=== PATIENT | female | born 2000 | race African-American/Black ===

== ENCOUNTER 2021-12-10 11:31 | Emergency (ER) | payer OTHER ==
[~2021-12-10] VITALS: Ht 160 cm; Wt 60.6 kg
[2021-12-10] MEDS ORDERED: ONDA4TAB6 PO (11:39)
[2021-12-10 13:43] LABS: BASO % 0.3 % (0.0-1.0); EOS % 0.2 % (0.0-3.0); HEMATOCRIT 38.1 % (36.0-47.0); HEMOGLOBIN 12.9 g/dl (12.0-15.5); LYMPH # 1.8 10^3/uL (1.5-5.0); LYMPH % 31.9 % (24.0-44.0); MEAN CORPUSCULAR HEMOGLOBIN 29.5 pg (27.0-33.0); MEAN CORPUSCULAR HGB CONC 33.9 g/dl (32.0-36.5); MONO # 0.5 10^3/uL (0.0-0.8); MONO % 8.4 % (2.0-8.0); NEUTROPHILS # 3.4 10^3/uL (1.5-8.5); PLATELET COUNT, AUTOMATED 270 10^3/uL (150-450); RED BLOOD COUNT 4.38 10^6/uL (4.00-5.40); WHITE BLOOD COUNT 5.7 10^3/uL (4.0-10.0)
[2021-12-10 14:16] LABS: ALBUMIN 3.8 GM/DL (3.2-5.2); ALT/SGPT 28 U/L (12-78); BILIRUBIN,DIRECT 0.3 MG/DL (0.0-0.2); BILIRUBIN,TOTAL 1.2 MG/DL (0.2-1.0); BLOOD UREA NITROGEN 6 MG/DL (7-18); CALCIUM LEVEL 9.5 MG/DL (8.5-10.1); CARBON DIOXIDE LEVEL 23 MEQ/L (21-32); CHLORIDE LEVEL 103 MEQ/L (98-107); CREATININE FOR GFR 0.57 MG/DL (0.55-1.30); GLOMERULAR FILTRATION RATE > 60.0 (>60); GLUCOSE, FASTING 71 MG/DL (70-100); LIPASE 92 U/L (73-393); SODIUM LEVEL 136 MEQ/L (136-145); TOTAL PROTEIN 7.8 GM/DL (6.4-8.2)
[2021-12-10] MEDS ORDERED: NS 1,000 ML IV ONE (16:00)
[2021-12-10] MEDS ORDERED: METOCLOPRAMIDE INJ 10MG/2ML VIAL (J2765 PER 1) IV ONE (16:00)
[2021-12-10] MEDS ORDERED: REGL10TA6 PO (17:08)
[2021-12-10 17:16] VITALS: BP 114/84
== END 2021-12-10 17:27 | disposition home or self-care (01) ==
LOC: M ED 11:31
DX: O21.9 Vomiting of pregnancy, unspecified (principal)
CPT/HCPCS: 80048; 80076; 83690; 85025; 96361; 96374; 99284; J2765

== ENCOUNTER 2022-03-24 10:33 | Observation (INO) | payer OTHER ==
[~2022-03-24] VITALS: Ht 160 cm; Wt 73.5 kg
[2022-03-24] VITALS (8 sets, daily range): BP systolic 110–140; BP diastolic 60–79
[~2022-03-24 10:33] MED LIST: ONDA4TAB6 PO; REGL10TA6 PO
[2022-03-24 11:43] LABS: HEMATOCRIT 30.3 % (36.0-47.0); HEMOGLOBIN 9.9 g/dl (12.0-15.5); MEAN CORPUSCULAR HEMOGLOBIN 28.7 pg (27.0-33.0); MEAN CORPUSCULAR HGB CONC 32.7 g/dl (32.0-36.5); MEAN CORPUSCULAR VOLUME 87.8 fl (80.0-96.0); PLATELET COUNT, AUTOMATED 250 10^3/uL (150-450); RED BLOOD COUNT 3.45 10^6/uL (4.00-5.40); WHITE BLOOD COUNT 6.5 10^3/uL (4.0-10.0)
[2022-03-24] MEDS ORDERED: UNIS25TA3 PO (12:51)
[2022-03-24] MEDS ORDERED: PRENTAB9 PO (12:51)
[2022-03-24] MEDS ORDERED: VITA100T14 PO (12:51)
[2022-03-24] MEDS ORDERED: ACETAMINOPHEN 325 MG TAB PO ONE (15:45)
[2022-03-24] MEDS ORDERED: diphenhydrAMINE 50MG CAP PO PRN (15:50)
[2022-03-25 04:06] VITALS: BP 109/62
[2022-03-25 07:09] VITALS: BP 105/56
[2022-03-25] MEDS ORDERED: PRENATAL VITAMINS CHEWABLE TABLET PO SCH (09:00)
== END 2022-03-25 09:30 | disposition home or self-care (01) ==
LOC: M LDO 10:33 → M LDI 16:16
PROVIDERS: ADMIT Registered Nurse; ATTEND Registered Nurse
DX: O26.92 Pregnancy related conditions, unspecified, second trimester (principal); W00.0XXA Fall on same level due to ice and snow, initial encounter; Y92.89 Other specified places as the place of occurrence of the external cause; Y93.9 Activity, unspecified; Y99.9 Unspecified external cause status; Z3A.26 26 weeks gestation of pregnancy

== ENCOUNTER 2022-03-26 15:02 | Outpatient (CLI) | payer OTHER ==
[~2022-03-26] VITALS: Ht 160 cm; Wt 73.3 kg
[~2022-03-26 15:02] MED LIST changes: +PRENTAB9 PO; +UNIS25TA3 PO; +VITA100T14 PO
[2022-03-26] MEDS ORDERED: FLUCONAZOLE 50MG TABLET PO ONE (16:30)
[2022-03-26 16:38] LABS: HEMATOCRIT 29.3 % (36.0-47.0); HEMOGLOBIN 9.7 g/dl (12.0-15.5); MEAN CORPUSCULAR HEMOGLOBIN 28.8 pg (27.0-33.0); MEAN CORPUSCULAR HGB CONC 33.1 g/dl (32.0-36.5); MEAN CORPUSCULAR VOLUME 86.9 fl (80.0-96.0); PLATELET COUNT, AUTOMATED 248 10^3/uL (150-450); RED BLOOD COUNT 3.37 10^6/uL (4.00-5.40)
[2022-03-26 16:53] LABS: INR 0.97; PROTHROMBIN TIME 13.1 SECONDS (12.5-14.5)
[2022-03-26 16:54] LABS: PARTIAL THROMBOPLASTIN TIME 23.7 SECONDS (24.8-34.2)
== END 2022-03-26 17:19 | disposition home or self-care (01) ==
LOC: M LDO 15:02
PROVIDERS: ATTEND Registered Nurse
DX: O23.592 Infection of other part of genital tract in pregnancy, second trimester (principal); Z3A.27 27 weeks gestation of pregnancy; O26.892 Other specified pregnancy related conditions, second trimester; R10.2 Pelvic and perineal pain
CPT/HCPCS: 36415; 59025; 76815; 85027; 85384; 85610; 85730; G0463

== ENCOUNTER 2022-06-13 13:25 | Outpatient (CLI) | payer OTHER ==
[~2022-06-13] VITALS: Ht 160 cm; Wt 75.3 kg
[2022-06-13 13:50] VITALS: BP 129/71
[2022-06-13] MEDS ORDERED: IRON65TA2 PO (13:51)
[2022-06-13] MEDS ORDERED: FLUO10CA18 PO (13:51)
[2022-06-13] MEDS ORDERED: FLUCONAZOLE 100 MG TAB PO ONE (15:10)
[2022-06-13] MEDS ORDERED: FLUCONAZOLE 50MG TABLET PO ONE (16:00)
== END 2022-06-13 15:29 | disposition home or self-care (01) ==
LOC: M LDO 13:25
PROVIDERS: ATTEND Registered Nurse
DX: O23.593 Infection of other part of genital tract in pregnancy, third trimester (principal); Z3A.38 38 weeks gestation of pregnancy
CPT/HCPCS: 59025; G0463

== ENCOUNTER 2022-06-19 03:18 | Outpatient (CLI) | payer OTHER ==
[~2022-06-19] VITALS: Ht 160 cm; Wt 74.5 kg
[~2022-06-19 03:18] MED LIST changes: +FLUO10CA18 PO; +IRON65TA2 PO
[2022-06-19 04:01] VITALS: BP 127/86
[2022-06-19] MEDS ORDERED: PROMETHAZINE 25MG/ML 1ML VIAL IM ONE ×2 (05:45→05:50)
[2022-06-20] MEDS ORDERED: LIDOCAINE 2% W/EPINEPHRINE 20ML VIAL **PRES FREE As Ordered ONE (00:45)
[2022-06-20] MEDS ORDERED: OXYTOCIN INJ 10UNITS/ML 1ML VIAL As Ordered ONE (00:46)
[2022-06-20] MEDS ORDERED: ONDANSETRON 4MG 2ML VIAL As Ordered ONE (00:58)
== END 2022-06-19 06:05 | disposition home or self-care (01) ==
LOC: M LDO 03:18
PROVIDERS: ATTEND Obstetrics & Gynecology
DX: O47.1 False labor at or after 37 completed weeks of gestation (principal); Z3A.39 39 weeks gestation of pregnancy
CPT/HCPCS: 59025; 96372; G0463

== ENCOUNTER 2022-06-19 11:04 | Inpatient (IN) | payer OTHER ==
[~2022-06-19] VITALS: Ht 160 cm; Wt 76.4 kg
[2022-06-19] VITALS (42 sets, daily range): BP systolic 89–137; BP diastolic 53–86
[~2022-06-19 11:04] MED LIST changes: +PROMETHAZINE 25MG/ML 1ML VIAL ONE
[2022-06-19] MEDS ORDERED: CARBOPROST TROMETHAMINE 250 MCG/ML AMP IM PRN (11:25)
[2022-06-19] MEDS ORDERED: LACTATED RINGER'S 1000 ML IV PRN (11:25)
[2022-06-19] MEDS ORDERED: METHYLERGONOVINE MALEATE 0.2MG/ML 1ML VIAL IM PRN (11:25)
[2022-06-19] MEDS ORDERED: LIDOCAINE 1% MDV 20ML VIAL INFIL PRN (11:25)
[2022-06-19] MEDS ORDERED: OXYTOCIN DRIP 30 UNITS in IV 1 EA IV PRN (11:25)
[2022-06-19] MEDS ORDERED: HOME MED LIST COMPLETE! XX SCH (12:10)
[2022-06-19 12:24] LABS: HEMATOCRIT 37.2 % (36.0-47.0); HEMOGLOBIN 12.8 g/dl (12.0-15.5); MEAN CORPUSCULAR HEMOGLOBIN 29.2 pg (27.0-33.0); MEAN CORPUSCULAR HGB CONC 34.4 g/dl (32.0-36.5); MEAN CORPUSCULAR VOLUME 84.9 fl (80.0-96.0); PLATELET COUNT, AUTOMATED 223 10^3/uL (150-450); RED BLOOD COUNT 4.38 10^6/uL (4.00-5.40); WHITE BLOOD COUNT 11.3 10^3/uL (4.0-10.0)
[2022-06-19] MEDS: LR 1,000 ML IV SCH ×2 (12:51→13:27)
[2022-06-19] MEDS ORDERED: LR 500 ML IV PRN (13:05)
[2022-06-19] MEDS ORDERED: diphenhydrAMINE 50MG/ML VIAL IV PRN (13:05)
[2022-06-19] MEDS ORDERED: ONDANSETRON 4MG 2ML VIAL IV PRN (13:05)
[2022-06-19] MEDS ORDERED: ePHEDrine SULFATE 25 MG/5 ML(5MG/ML) SYRINGE IVP PRN (13:05)
[2022-06-19] MEDS ORDERED: NALOXONE INJ 0.4MG/1ML VIAL IV PRN (13:05)
[2022-06-19] MEDS ORDERED: EPIDURAL/PCA KEYS XX PRN (13:05)
[2022-06-19] MEDS: FENTANYL/ROPIVACAINE/NACL BAG 100 ML EPIDURAL SCH ×2 (13:28→21:59)
[2022-06-19] MEDS ORDERED: OXYTOCIN DRIP 30 UNITS in IV 1 EA IV SCH (16:10)
[2022-06-20] VITALS (11 sets, daily range): BP systolic 100–127; BP diastolic 55–79
[2022-06-20] MEDS: LR 1,000 ML IV SCH ×3 (00:21→10:30)
[2022-06-20] MEDS ORDERED: BICITRA 30ML SOLN UDC PO ONE (00:35)
[2022-06-20] MEDS ORDERED: AZITHROMYCIN INJ 500 MG, VIAL MATE ADAPTER 1 EACH in NS 250 ML IV ONE (00:35)
[2022-06-20] MEDS ORDERED: ceFAZolin SOD 2 GM in IV 1 EA IV ONE (00:35)
[2022-06-20] MEDS ORDERED: ceFAZolin 2 GM/D5W 50 ML IV BAG As Ordered ONE (00:39)
[2022-06-20] MEDS ORDERED: BICITRA 30ML SOLN UDC As Ordered ONE (00:40)
[2022-06-20] MEDS ORDERED: AZITHROMYCIN INJ 500MG VIAL As Ordered ONE (00:40)
[2022-06-20] MEDS ORDERED: BUPIVACAINE HCL 0.25% 10ML VIAL SC ONE (00:40)
[2022-06-20] MEDS ORDERED: LIDOCAINE 2% W/EPINEPHRINE 20ML VIAL **PRES FREE ONE (00:45)
[2022-06-20] MEDS ORDERED: OXYTOCIN INJ 10UNITS/ML 1ML VIAL ONE ×3 (00:46)
[2022-06-20] MEDS ORDERED: ONDANSETRON 4MG 2ML VIAL ONE (00:58)
[2022-06-20] MEDS ORDERED: MEPERIDINE 25 MG/ML 1ML VIAL IV PRN (01:30)
[2022-06-20] MEDS: SLF 3 ML SYR IV SCH ×3 (01:30→18:13)
[2022-06-20] MEDS ORDERED: **NOTE PATIENT COMMENT** MISC XX SCH (01:30)
[2022-06-20] MEDS ORDERED: ONDANSETRON 4MG 2ML VIAL IV PRN ×2 (01:30→02:30)
[2022-06-20] MEDS ORDERED: oxyCODONE 5MG TAB PO PRN ×2 (01:30→02:30)
[2022-06-20] MEDS ORDERED: fentaNYL 100 MCG/2 ML INJECTION IV PRN (01:30)
[2022-06-20] MEDS ORDERED: HYDROMORPHONE HCL 0.5 MG/ 0.5 ML SYRINGE IV PRN (01:30)
[2022-06-20] MEDS ORDERED: METOCLOPRAMIDE INJ 10MG/2ML VIAL IV PRN ×2 (01:30→02:30)
[2022-06-20] MEDS ORDERED: NALOXONE INJ 0.4MG/1ML VIAL IV PRN ×2 (01:30)
[2022-06-20] MEDS ORDERED: diphenhydrAMINE 50MG/ML VIAL IV PRN (01:30)
[2022-06-20] MEDS ORDERED: METOCLOPRAMIDE INJ 10MG/2ML VIAL As Ordered ONE (01:33)
[2022-06-20 01:39] LABS: CORD GAS ABE A -2.4; CORD GAS O2 SAT A 70.7 %; CORD GAS PH A 7.326 UNITS; CORD GAS PO2 A 29.7 mmHg; CORD GAS SBC A 21.8 MEQ/L; CORD GAS TCO2 A 25.4 MEQ/L
[2022-06-20] MEDS ORDERED: MORPHINE PRES-FREE INJ 10 MG/10 ML VIAL As Ordered ONE (01:39)
[2022-06-20 01:40] LABS: CORD GAS ABE V -3.3; CORD GAS HCO3 V 22.6 MEQ/L; CORD GAS O2 SAT V 85.1 %; CORD GAS PCO2 V 43.5 mmHg; CORD GAS PH V 7.333 UNITS; CORD GAS PO2 V 41.3 mmHg; CORD GAS SBC V 21.4 MEQ/L; CORD GAS TCO2 V 23.9 MEQ/L
[2022-06-20] MEDS ORDERED: PHENYLephrine 500MCG 5ML (100MCG/ML) SYRINGE As Ordered ONE (01:46)
[2022-06-20] MEDS ORDERED: OXYTOCIN 30UNITS IN 0.9% NaCl 500ML IV BAG As Ordered ONE (01:46)
[2022-06-20] MEDS ORDERED: KETOROLAC 60MG 2ML VIAL As Ordered ONE (02:10)
[2022-06-20] MEDS ORDERED: METHYLERGONOVINE MALEATE 0.2MG/ML 1ML VIAL IM PRN (02:30)
[2022-06-20] MEDS ORDERED: SIMETHICONE 80MG CHEW TAB PO PRN (02:30)
[2022-06-20] MEDS ORDERED: RHOGAM 300MCG (1500IU) INJ IM SCH (02:30)
[2022-06-20] MEDS ORDERED: OXYTOCIN DRIP 30 UNITS in IV 1 EA IV SCH (02:30)
[2022-06-20] MEDS: ACETAMINOPHEN 500 MG TAB PO SCH ×4 (03:14→20:17)
[2022-06-20] MEDS: KETOROLAC 30 MG/ML 1ML VIAL IV SCH ×3 (07:48→20:17)
[2022-06-20] MEDS: DOCUSATE SODIUM 100MG CAPSULE PO SCH ×2 (07:55→20:17)
[2022-06-20] MEDS: PRENATAL VITAMINS CHEWABLE TABLET PO SCH (07:55)
[2022-06-20] MEDS: FLUoxetine 10 MG CAP PO SCH (08:46)
[2022-06-21 01:47] VITALS: BP 124/77
[2022-06-21] MEDS: ACETAMINOPHEN 500 MG TAB PO SCH ×4 (03:06→21:23)
[2022-06-21] MEDS: IBUPROFEN 800 MG TAB PO SCH ×3 (04:20→19:56)
[2022-06-21 06:00] VITALS: BP 109/66
[2022-06-21 07:10] LABS: MEAN CORPUSCULAR HEMOGLOBIN 29.3 pg (27.0-33.0); MEAN CORPUSCULAR HGB CONC 32.8 g/dl (32.0-36.5); MEAN CORPUSCULAR VOLUME 89.3 fl (80.0-96.0); PLATELET COUNT, AUTOMATED 170 10^3/uL (150-450); WHITE BLOOD COUNT 12.3 10^3/uL (4.0-10.0)
[2022-06-21 07:11] LABS: HEMOGLOBIN 8.2 g/dl (12.0-15.5)
[2022-06-21] MEDS: oxyCODONE 5MG TAB PO PRN (07:43)
[2022-06-21] MEDS: DOCUSATE SODIUM 100MG CAPSULE PO SCH ×2 (09:00→21:22)
[2022-06-21 10:00] VITALS: BP 106/59
[2022-06-21] MEDS: PRENATAL VITAMINS CHEWABLE TABLET PO SCH (11:53)
[2022-06-21] MEDS: FLUoxetine 10 MG CAP PO SCH (11:53)
[2022-06-21 14:00] VITALS: BP 114/69
[2022-06-21 18:00] VITALS: BP 118/75
[2022-06-21 22:00] VITALS: BP 107/63
[2022-06-22 02:50] VITALS: BP 110/74
[2022-06-22] MEDS: ACETAMINOPHEN 500 MG TAB PO SCH ×3 (03:41→15:24)
[2022-06-22] MEDS: IBUPROFEN 800 MG TAB PO SCH ×2 (03:42→13:08)
[2022-06-22 06:00] VITALS: BP 100/54
[2022-06-22] MEDS ORDERED: MEASLES,MUMPS,RUBELLA VACCINE INJ (MMR-II) SC.IMMUN ONE (09:00)
[2022-06-22] MEDS: oxyCODONE 5MG TAB PO PRN ×2 (09:42→15:24)
[2022-06-22] MEDS: PRENATAL VITAMINS CHEWABLE TABLET PO SCH (09:42)
[2022-06-22] MEDS: DOCUSATE SODIUM 100MG CAPSULE PO SCH (09:42)
[2022-06-22] MEDS: FLUoxetine 10 MG CAP PO SCH (13:08)
== END 2022-06-22 15:50 | disposition home or self-care (01) | DRG 773 ==
LOC: M LDO 11:04 → M LDI 11:43 → M OBS 06-20 04:30
PROVIDERS: ADMIT Registered Nurse; ATTEND Obstetrics & Gynecology
PROC: 10907ZC Drainage of Amniotic Fluid, Therapeutic from Products of Conception, Via Natural or Artificial Opening (ICD-10-PCS; 2022-06-19)
PROC: 10D00Z1 Extraction of Products of Conception, Low, Open Approach (ICD-10-PCS; principal; 2022-06-20 01:08)
DX: O76 Abnormality in fetal heart rate and rhythm complicating labor and delivery (principal); Z3A.39 39 weeks gestation of pregnancy; Z37.0 Single live birth; O62.0 Primary inadequate contractions

== ENCOUNTER → 2022-10-16 | Outpatient (REF) ==
[~2022-10-16] MED LIST changes: -PROMETHAZINE 25MG/ML 1ML VIAL ONE
== END ==
LOC: M PLAIMG 08:36
PROVIDERS: ATTEND Internal Medicine
DX: R06.02 Shortness of breath (principal); M53.3 Sacrococcygeal disorders, not elsewhere classified

== ENCOUNTER 2023-02-27 11:37 | Emergency (ER) | payer OTHER ==
[~2023-02-27] VITALS: Ht 160 cm; Wt 63.6 kg
[2023-02-27] MEDS ORDERED: CETI-24 (11:50)
[2023-02-27] MEDS ORDERED: FLUO20CA22 (11:50)
[2023-02-27] MEDS ORDERED: ALMASUS (11:50)
[2023-02-27] MEDS ORDERED: NORT25CA2 (11:50)
[2023-02-27 12:00] VITALS: BP 142/85; O2SAT 98
[2023-02-27 12:15] VITALS: BP 137/82; O2SAT 98
[2023-02-27 12:30] VITALS: BP 122/88; O2SAT 98
[2023-02-27 12:43] LABS: BASO % 0.6 % (0.0-1.0); EOS % 0.4 % (0.0-3.0); HEMATOCRIT 41.5 % (36.0-47.0); HEMOGLOBIN 14.2 g/dl (12.0-15.5); LYMPH % 37.8 % (24.0-44.0); MEAN CORPUSCULAR HEMOGLOBIN 29.3 pg (27.0-33.0); MEAN CORPUSCULAR HGB CONC 34.2 g/dl (32.0-36.5); MEAN CORPUSCULAR VOLUME 85.6 fl (80.0-96.0); MONO # 0.4 10^3/uL (0.0-0.8); MONO % 8.2 % (2.0-8.0); NEUTROPHILS # 2.9 10^3/uL (1.5-8.5); NEUTROPHILS % 52.8 % (36.0-66.0); PLATELET COUNT, AUTOMATED 313 10^3/uL (150-450); RED BLOOD COUNT 4.85 10^6/uL (4.00-5.40); WHITE BLOOD COUNT 5.4 10^3/uL (4.0-10.0)
[2023-02-27 12:45] VITALS: BP 129/90; O2SAT 98
[2023-02-27] MEDS ORDERED: NS 1,000 ML IV ONE (12:50)
[2023-02-27] MEDS ORDERED: diphenhydrAMINE 50MG/ML VIAL IV ONE (12:50)
[2023-02-27] MEDS ORDERED: KETOROLAC 30 MG/ML 1ML VIAL IV ONE (12:50)
[2023-02-27 12:56] LABS: INR 1.09; PROTHROMBIN TIME 13.8 SECONDS (12.5-14.5)
[2023-02-27 12:57] LABS: PARTIAL THROMBOPLASTIN TIME 27.6 SECONDS (24.8-34.2)
[2023-02-27] MEDS ORDERED: METOCLOPRAMIDE INJ 10MG/2ML VIAL IV ONE (13:00)
[2023-02-27 13:04] LABS: ETHYL ALCOHOL (ETHANOL) < 0.003 % (0.000-0.010); HCG, SERUM QUALITATIVE NEGATIVE (NEGATIVE)
[2023-02-27 13:05] LABS: BLOOD UREA NITROGEN 10 MG/DL (9-23); CALCIUM LEVEL 9.8 MG/DL (8.5-10.1); CARBON DIOXIDE LEVEL 22 MMOL/L (20-31); CHLORIDE LEVEL 100 MMOL/L (98-107); CK-MB VALUE MASS < 1.0 NG/ML (<3.6); CREATININE FOR GFR 0.69 MG/DL (0.55-1.30); GLOMERULAR FILTRATION RATE > 60.0 (>60); GLUCOSE, FASTING 78 MG/DL (60-100); POTASSIUM SERUM 3.8 MMOL/L (3.5-5.1); SODIUM LEVEL 135 MMOL/L (136-145)
[2023-02-27 13:06] LABS: CPK CREATINE PHOSPHOKINASE 117 U/L (34-145); MB/CK RELATIVE INDEX 0.85 (< OR =4)
[2023-02-27 15:46] LABS: AMPHETAMINES LEVEL URINE NEGATIVE (NEGATIVE); BARBITURATES URINE NEGATIVE (NEGATIVE)
[2023-02-27 15:47] LABS: BENZODIAZEPINES URINE NEGATIVE (NEGATIVE); CANNABINOIDS URINE NEGATIVE (NEGATIVE); COCAINE METABOLITE URINE NEGATIVE (NEGATIVE); METHADONE URINE NEGATIVE (NEGATIVE); OPIATES URINE NEGATIVE (NEGATIVE); PHENCYCLIDINE URINE NEGATIVE (NEGATIVE)
[2023-02-27 16:00] VITALS: BP 120/71; TEMP 98.6; O2SAT 100
== END 2023-02-27 16:11 | disposition home or self-care (01) ==
LOC: M ED 11:37 → EDBD 11:37 → M ED 16:11
DX: G43.809 Other migraine, not intractable, without status migrainosus (principal); Z79.899 Other long term (current) drug therapy
CPT/HCPCS: 36415; 70450; 71045; 80047; 80048; 80307; 82077; 82550; 82553; 84484; 84702; 84703; 85025; 85610; 85730; 87486; 87581; 87633; 87798; 93005; 93041; 94760; 96361; 96374; 99285; J1200; J1885; J2765